=== PATIENT | female | born 2000 | race Hispanic/Latino ===

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

== ENCOUNTER 2024-09-24 13:12 | Emergency (ER) | payer SELFPAY ==
[~2024-09-24] VITALS: Ht 165.1 cm; Wt 138.0 kg
[~2024-09-24 13:12] MED LIST changes: +KEFLEX500 MG PO; +PREDNISONE20 MG PO
[2024-09-24] MEDS ORDERED: LIDOcaine HCl 1% (Local Anesth.) 20 ML VIAL STI STA (14:21)
[2024-09-24] MEDS ORDERED: POVIDONE IODINE 0.5 OZ/BTL TOP STA (14:21)
[2024-09-24] MEDS ORDERED: BACTRIM DS1 TAB PO (14:22)
[2024-09-24] MEDS ORDERED: CEPHALEXIN500 M1 PO (14:22)
[2024-09-24 14:27] VITALS: BP 118/63
[2024-09-24 14:30] VITALS: BP 126/73
[2024-09-24] MEDS ORDERED: SULFAMETHOXAZOLE W/TRIMETHOPRI 1 COMBO TAB PO ONE (14:50)
[2024-09-24] MEDS ORDERED: CEPHALEXIN MONOHYDRATE 500 MG/CAP PO ONE (14:50)
[2024-09-24 15:00] VITALS: BP 143/95
== END 2024-09-24 15:00 | disposition home or self-care (01) | DRG 603 ==
LOC: ED 13:12
PROC: 0H97XZZ Drainage of Abdomen Skin, External Approach (ICD-10-PCS; principal; 2024-09-24)
DX: L02.211 Cutaneous abscess of abdominal wall (principal)